=== PATIENT | female | born 1950 | race Two or more races ===

== ENCOUNTER 2017-03-18 12:00 | Inpatient (IN) | payer OTHER ==
[~2017-03-18] VITALS: Ht 162.6 cm; Wt 88.0 kg
[2017-04-07] MEDS ORDERED: METFORMIN HCL1000 M1 ORAL (10:12)
[2017-04-07] MEDS ORDERED: PRADAXA150 MG ORAL (10:12)
[2017-04-07] MEDS ORDERED: LEVOTHYROXINE75 MCG ORAL (10:12)
[2017-04-07] MEDS ORDERED: DILTIAZEM ER180 MG PO (10:12)
[2017-04-07] MEDS ORDERED: AMIODARONE HCL100 MG ORAL (10:12)
[2017-04-08] VITALS (13 sets, daily range): BP systolic 132–156; BP diastolic 74–89
[2017-04-08] MEDS ORDERED: LR 1000ml 1,000 ML IVLG SCH (06:25)
[2017-04-08] MEDS ORDERED: Meperidine 25mg/0.5ml Inj IV PRN (06:30)
[2017-04-08] MEDS ORDERED: DiphenhydrAMINE 50mg/ml Inj IVP PRN (06:30)
[2017-04-08] MEDS ORDERED: Norco 7.5mg/325mg tab ORAL PRN ×3 (06:30→07:45)
[2017-04-08] MEDS ORDERED: fentaNYL 100 mcg/2 mL IV PRN (06:30)
[2017-04-08] MEDS ORDERED: Metoclopramide 10mg/2ml Inj IVP PRN ×2 (06:30→07:45)
[2017-04-08] MEDS ORDERED: Norco 5mg/325mg tab ORAL PRN ×2 (06:30→07:45)
[2017-04-08] MEDS ORDERED: Oxycodone/Acetaminophen 5-325 ORAL PRN (06:30)
[2017-04-08] MEDS ORDERED: LORazepam Inj 2mg/ml 1ml IV PRN (06:30)
[2017-04-08] MEDS ORDERED: Ketorolac 30mg Inj IV PRN (06:30)
[2017-04-08] MEDS ORDERED: Ketorolac 60mg Inj IV PRN (06:30)
[2017-04-08] MEDS ORDERED: Midazolam 2mg/2ml Inj IVP PRN (06:30)
[2017-04-08] MEDS ORDERED: Atropine Inj 1mg/10ml Syr IV PRN (06:30)
[2017-04-08] MEDS ORDERED: Hydromorphone 0.5mg/0.5ml inj IVP PRN (06:30)
--- NOTE | 2017-04-08 06:52 | Anethesia Preoperative Eval ---
Anesthesia Pre-op PMH/ROS General Date of Evaluation: April 08, 2017 Time of Evaluation: 07:16 Anesthesiologist: Hortencia ASA Score: ASA 3 Mallampati Score Class I : Soft palate, uvula, fauces, pillars visible Class II: Soft palate, uvula, fauces visible Class III: Soft palate, base of uvula visible Class IV: Only hard plate visible Mallampati Classification: Class II Surgeon: Kristin Diagnosis: Neck Pain Surgical Procedure: ACDF C5-6 Anesthesia History: none Family History: no anesthesia problems Allergies: Coded Allergies: ASPIRIN (Verified Allergy, Unknown, 04/07/17) PT DOES NOT KNOW REACTION, 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 Medications: see eMAR Past Medical History Cardiovascular: Reports: HTN, arrhythmia - Pacemaker Neurologic/Psychiatric: Reports: depression/anxiety Endocrine: Reports: DM - FBS 140 HEENT: Reports: cataract (R) PSxH Narrative: LEX Anesthesia Pre-op Phys. Exam Physician Exam Last Vital Signs Date Time Temp Pulse Resp B/P Pulse Ox O2 Delivery O2 Flow Rate FiO2 04/08/17 05:54 97.1 68 18 156/74 99 Room Air Constitutional: NAD Neurologic: CN 2-12 intact Cardiovascular: RRR Respiratory: CTA Gastrointestinal: S/NT/ND Airway Exam Mallampati Score: Class II MO: full ROM: limited Teeth: intact Anesthesia Pre-op A/P Risk Assessment & Plan Assessment: ASA 3 Plan: GA, BIS, Glidescope Status Change Before Surgery: No Pre-Antibiotics Dru Grams Ancef IV Given Within 1 Hr of Incision: Yes Time Given: 07:31 Weston Burnett MD April 08, 2017 06:52
--- NOTE | 2017-04-08 06:54 | 48 Hour Post Anesthesia Eval ---
Post Anesthesia Evaluation Procedure: ACDF C5-6 Date of Evaluation: April 08, 2017 Time of Evaluation: 11:43 Blood Pressure Systolic: 150 0: 87 Pulse Rate: 60 Respiratory Rate: 14 Temperature (Fahrenheit): 97.6 O2 Sat by Pulse Oximetry: 100 Airway: patent Nausea: No Vomiting: No Pain Intensity: 3 Hydration Status: adequate Cardiopulmonary Status: Stable Mental Status/LOC: patient returned to baseline Follow-up Care/Observations: 0 Post-Anesthesia Complications: 0 Follow-up care needed: N/A Weston Burnett MD April 08, 2017 06:54
--- NOTE | 2017-04-08 06:54 | Immediate Post-Op Evaluation ---
Immediate Post-Op Evalulation Immediate Post-Op Evalulation Procedure: ACDF C5-6 Date of Evaluation: April 08, 2017 Time of Evaluation: 09:15 IV Fluids: 700 LR Blood Products: 0 Estimated Blood Loss: 20 Urinary Output: 400 Blood Pressure Systolic: 149 Blood Pressure Diastolic: 85 Pulse Rate: 60 Respiratory Rate: 16 O2 Sat by Pulse Oximetry: 100 Temperature (Fahrenheit): 97 Pain Score (1-10): 3 Nausea: No Vomiting: No Complications 0 Patient Status: awake, reacts, patent, extubated, none Hydration Status: adequate Dru Grams Ancef IV Given Within 1 Hr of Incision: Yes Time Given: 07:31 Weston Burnett MD April 08, 2017 06:54
[2017-04-08] MEDS ORDERED: Thrombin 5000 units TOPIC ONE (06:58)
[2017-04-08] MEDS ORDERED: Vancomycin 1gm inj IVPB ONE (06:58)
[2017-04-08] MEDS ORDERED: Bacitracin 50000 Units Vial ONE (06:59)
[2017-04-08] MEDS ORDERED: Bupivacaine w/Epi 0.5% 30ml Vial INJ ONE (06:59)
[2017-04-08] MEDS ORDERED: LR 1000ml ONE (07:00)
[2017-04-08] MEDS ORDERED: Nimbex 2mg/ml Inj 10ML IVP ONE (07:00)
[2017-04-08] MEDS ORDERED: Glycopyrrolate 0.2mg/ml 1ml Vial ONE (07:00)
[2017-04-08] MEDS ORDERED: Neostigmine 1mg/ml 10ml Inj ONE (07:00)
[2017-04-08] MEDS ORDERED: ceFAZolin sod 2 GM in D5W 110 ML IVPB ONE (07:00)
[2017-04-08] MEDS ORDERED: Lidocaine 1% MPF 10mg/ml 5ml ONE (07:00)
[2017-04-08] MEDS ORDERED: Lidocaine 1% Plain 30 ml INJ ONE (07:00)
[2017-04-08] MEDS ORDERED: Midazolam 2mg/2ml Inj ONE (07:00)
[2017-04-08] MEDS ORDERED: fentaNYL 250mcg/5ml ONE (07:00)
[2017-04-08] MEDS ORDERED: NS Irrig 1000ml ONE (07:00)
[2017-04-08] MEDS ORDERED: Sterile Water Irrig 1000ml IRRIG ONE (07:00)
[2017-04-08] MEDS ORDERED: Propofol 10mg/ml 100ml btl IV ONE (07:30)
--- NOTE | 2017-04-08 07:36 | Pre-Procedure Note/Attestation ---
Pre-Procedure Note/Attestation Complete Prior to Procedure Planned Procedure: not applicable Procedure Narrative: Anterior cervical discectomy and fusion of C56 with allograft Indications for Procedure Pre-Operative Diagnosis: Cervical 56 hnp Attestation I attest that I discussed the nature of the procedure; its benefits; risks and complications; and alternatives (and the risks and benefits of such alternatives ), prior to the procedure, with the patient (or the patient's legal employer relations representative). I attest that, if there was a reasonable possibility of needing a blood transfusion, the patient (or the patient's legal employer relations representative) was given the [facility] standardized written summary, pursuant to the Ziyad Rosaura Blood Safety Act ([place] Health and Safety Code # 1645, as amended). I attest that I re-evaluated the patient just prior to the surgery and that there has been no change in the patient's H&P, except as documented below: MAYE DAVE April 08, 2017 07:36
--- NOTE | 2017-04-08 07:37 | Brief Operative Note ---
Immediate Post Operative Note Operative Note Chief Complaint: neck pain and right more than left arm pain Pre-op Diagnosis: Cervical 56 hnp Procedure: Anterior cervical discectomy and fusion of C56 with allograft Post-op Diagnosis: same as pre-op Findings: consistent w/pre-op dx studies Surgeon: Kristin Computing Services Director: Dena Anesthesiologist: Hortencia Anesthesia: general Specimen: none Complications: none Condition: stable Estimated Blood Loss: minimal Implant(s) used?: Yes - Nuvasive interlock c sz 6 MAYE DAVE April 08, 2017 07:37
[2017-04-08] MEDS ORDERED: Naloxone 0.4mg/ml Inj IVP PRN (07:45)
[2017-04-08] MEDS ORDERED: HYDROmorphone 1mg/ml Carpuject IVP PRN (07:45)
[2017-04-08] MEDS ORDERED: HYDROmorphone 1mg/ml Carpuject SUBQ PRN (07:45)
[2017-04-08] MEDS ORDERED: Acetaminophen (Non formulary) 100 ML IV ONE (08:00)
[2017-04-08] MEDS: Dexamethasone 4mg/ml vial IVP SCH ×3 (11:29→22:53)
[2017-04-08] MEDS: Amiodarone 200mg tab ORAL SCH (12:59)
[2017-04-08] MEDS: NS w/KCl 20mEq 1,000 ML IV SCH ×2 (12:59→22:53)
[2017-04-08] MEDS: Diltiazem CD 180mg cap ORAL SCH (12:59)
[2017-04-08] MEDS: ceFAZolin sod 1 GM in D5W 55 ML IV SCH ×2 (14:26→22:53)
[2017-04-08] MEDS: metFORMIN 500mg tab ORAL SCH (16:45)
[2017-04-08] MEDS: Docusate 100mg cap ORAL SCH (17:24)
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
[2017-04-09] VITALS: BP 138/80
[2017-04-09 04:00] VITALS: BP 124/71
[2017-04-09] MEDS: Dexamethasone 4mg/ml vial IVP SCH (06:43)
[2017-04-09] MEDS: ceFAZolin sod 1 GM in D5W 55 ML IV SCH (06:43)
[2017-04-09 08:00] VITALS: BP 140/77
[2017-04-09] MEDS: Diltiazem CD 180mg cap ORAL SCH (09:03)
[2017-04-09] MEDS: Amiodarone 200mg tab ORAL SCH (09:04)
[2017-04-09] MEDS: Docusate 100mg cap ORAL SCH (09:04)
[2017-04-09] MEDS: metFORMIN 500mg tab ORAL SCH (09:04)
[2017-04-09 12:00] VITALS: BP 131/77
--- NOTE | 2017-04-09 22:16 | Discharge Summary ---
DATE OF ADMISSION: 04/08/2017 DATE OF DISCHARGE: 04/09/2017 DATE OF ADMISSION: 04/08/2017 DATE OF DISCHARGE: 04/09/2017 PROCEDURE PERFORMED DURING ADMISSION: Anterior cervical diskectomy and fusion. REASON FOR ADMISSION: Herniated nucleus pulposus at cervical spine. HOSPITAL COURSE/TREATMENT RENDERED: DISCHARGE PHYSICAL EXAMINATION: 1. Patient was ambulating with and without the assistance of physical therapy 2. Prior to discharge home incision was clean and dry with minimal swelling 3. Follows commands 4. Alert and oriented 5. Arreguin discontinued, voiding 6. Incentive spirometer at bedside 7. IVF hep locked MOTOR: Demonstrates expected postoperative bulk and tone. Moves biceps, triceps, and deltoid musculature on command. Moves hip flexors, quadriceps, tibialis anterior, EHL, gastrocsoleus musculature on command as well. TREATMENT RENDERED: 1. Daily nursing care 2. Physical Therapy 3. Occupational Therapy 4. Intravenous medications 5. Oral medications 6. Daily postoperative examinations by Spine surgery team CONDITION OF PATIENT ON DISCHARGE: The condition on discharge is stable for discharge to home DISCHARGE INSTRUCTIONS: Our specific instructions relating to physical activity, medications diet and follow-up care are detailed in our standard operative folder and were given to this patient prior to surgery. We will however summarize these briefly as stated below. Regarding physical activity we would like the patient to limit their flexion, extension and rotation. We also require a limitation on their bending lifting and twisting. All medication has been called in prior to surgery to their pharmacy of choice. They can resume their regular diet once tolerated. We would like them to shower and limit soaking the wound in a tub/Jacuzzi/the ocean for a period of one month or until the incision is completely healed. We will have them follow up in our office in three weeks time for their regularly scheduled appointment. They understand to call our office tomorrow to schedule the time for their three week followup appointment. The patient will notify us should they experience any increase in the severity of pain, redness/swelling/ or drainage from their incision. Kush Foster M.D. DR: Tiffany JOB#: [id number] CC:
== END 2017-04-09 15:00 | disposition home or self-care (01) | DRG 473 ==
LOC: SDSOVERFLO 04-08 05:14 → 3E 04-08 10:16
DX: M50.122 Cervical disc disorder at C5-C6 level with radiculopathy (principal); M48.02 Spinal stenosis, cervical region; I10 Essential (primary) hypertension; E11.9 Type 2 diabetes mellitus without complications; Z95.0 Presence of cardiac pacemaker; F41.9 Anxiety disorder, unspecified; E66.9 Obesity, unspecified; Z68.33 Body mass index [BMI] 33.0-33.9, adult
CPT/HCPCS: 36415; 72040; 76000; 82962; 86850; 86900; 86901; 87081; 94003; 94150; J2180; J2250; J2405; J2710

== ENCOUNTER 2019-03-02 11:30 | Inpatient (IN) | payer OTHER ==
[~2019-03-02] VITALS: Ht 165.1 cm; Wt 88.9 kg
[~2019-03-02 11:30] MED LIST: AMIODARONE HCL100 MG ORAL; DILTIAZEM ER180 MG PO; LEVOTHYROXINE75 MCG ORAL; METFORMIN HCL1000 M1 ORAL; PRADAXA150 MG ORAL
--- NOTE | 2019-03-08 09:20 | NUR ---
ADMITTED VIA TABITHA REBOLLEDO #[id number].
[2019-03-09] VITALS (13 sets, daily range): BP systolic 120–170; BP diastolic 71–88
[2019-03-09] MEDS ORDERED: ceFAZolin sod 2 GM in D5W 55 ML IVP ONE (06:00)
--- NOTE | 2019-03-09 07:32 | Pre-Procedure Note/Attestation ---
Pre-Procedure Note/Attestation Complete Prior to Procedure Planned Procedure: not applicable Procedure Narrative: Lumbar 45, 5S1 microdiscectomy and hemilaminotomy foraminotomy with baxano Indications for Procedure Pre-Operative Diagnosis: L45 L5S1 herniation and back pain Attestation I attest that I discussed the nature of the procedure; its benefits; risks and complications; and alternatives (and the risks and benefits of such alternatives ), prior to the procedure, with the patient (or the patient's legal cordage sales representative). I attest that, if there was a reasonable possibility of needing a blood transfusion, the patient (or the patient's legal cordage sales representative) was given the [place] [facility] standardized written summary, pursuant to the Ziyad Barada Blood Safety Act ([place] Health and Safety Code # 1645, as amended). I attest that I re-evaluated the patient just prior to the surgery and that there has been no change in the patient's H&P, except as documented below: Kush Foster MD Mar 09, 2019 07:32
--- NOTE | 2019-03-09 07:33 | Brief Operative Note ---
Immediate Post Operative Note Operative Note Chief Complaint: back pain and radiculopathy Pre-op Diagnosis: L45 L5S1 herniation and back pain Procedure: Lumbar 45, 5S1 microdiscectomy and hemilaminotomy foraminotomy with baxano Post-op Diagnosis: same as pre-op Findings: consistent w/pre-op dx studies Surgeon: Kristin [employer] Technician: Kalpesh Anesthesiologist: Hortencia Anesthesia: general Specimen: none Complications: none Condition: stable Fluids: iv Estimated Blood Loss: minimal Drains: none Implant(s) used?: No Kush Foster MD Mar 09, 2019 07:33
[2019-03-09] MEDS ORDERED: Naloxone 0.4mg/ml Inj IVP PRN (07:45)
[2019-03-09] MEDS ORDERED: Milk of Magnesia 30ml Ud ORAL PRN (07:45)
[2019-03-09] MEDS ORDERED: HYDROmorphone 1mg/ml Carpuject IVP PRN (07:45)
[2019-03-09] MEDS ORDERED: Morphine Sulfate 4mg/ml Inj (IV USE ONLY) IV PRN ×2 (07:45)
[2019-03-09] MEDS ORDERED: HYDROcodone/Acetamin 7.5/325 tab ORAL PRN ×3 (07:45→09:45)
[2019-03-09] MEDS ORDERED: Chloraseptic Spray 20mL Bottle ORAL PRN (07:45)
[2019-03-09] MEDS ORDERED: Morphine Sulfate 2mg/ml Inj(IV/IM USE ONLY) IV PRN (07:45)
[2019-03-09] MEDS ORDERED: HYDROcodone/Acetamin 5/325 tab ORAL PRN ×2 (07:45→09:45)
[2019-03-09] MEDS ORDERED: Metoclopramide 10mg/2ml Inj IVP PRN ×2 (07:45→11:15)
[2019-03-09] MEDS ORDERED: SYNTHROID25 MCG ORAL (08:20)
[2019-03-09] MEDS ORDERED: PRADAXA110 MG PO (08:20)
[2019-03-09] MEDS ORDERED: ATENOLOL100 MG ORAL (08:20)
[2019-03-09] MEDS ORDERED: AMITRIPTYLINE25 MG ORAL (08:20)
[2019-03-09] MEDS ORDERED: LISINOPRIL30 MG ORAL (08:20)
[2019-03-09] MEDS ORDERED: HYDRALAZINE HCL50 MG ORAL (08:26)
[2019-03-09] MEDS ORDERED: Docusate 100mg cap ORAL SCH (09:00)
[2019-03-09] MEDS ORDERED: LR 1000ml 1,000 ML IVLG SCH (09:31)
--- NOTE | 2019-03-09 09:40 | Anethesia Preoperative Eval ---
Anesthesia Pre-op PMH/ROS General Date of Evaluation: Mar 09, 2019 Time of Evaluation: 10:29 Anesthesiologist: Hortencia ASA Score: ASA 3 Mallampati Score Class I : Soft palate, uvula, fauces, pillars visible Class II: Soft palate, uvula, fauces visible Class III: Soft palate, base of uvula visible Class IV: Only hard plate visible Mallampati Classification: Class II Surgeon: Kristin Diagnosis: Back Pain Surgical Procedure: R Hemilaminectomy L4-5, L5-S1, Baxano Anesthesia History: none Family History: no anesthesia problems Allergies: Coded Allergies: ASPIRIN (Verified Allergy, Unknown, 03/09/19) PT DOES NOT KNOW REACTION, SUPERVISOR 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 SHE WAS TOLD BY PRIMARY DR NOT TO TAKE ASPIRIN BECAUSE PT TAKING OTHER BLOOD THINNERS. Medications: see eMAR Patient NPO?: Yes NPO Date: Mar 08, 2019 NPO Time: 1900 Past Medical History Cardiovascular: Reports: HTN, arrhythmia - Pacemaker, other - HL Neurologic/Psychiatric: Reports: depression/anxiety Endocrine: Reports: DM, hypothyroidism HEENT: Reports: cataract (R) Other: obesity - BMI 34 PSxH Narrative: LEX, Cervical SX, Cataract IOL OD Anesthesia Pre-op Phys. Exam Physician Exam Last Vital Signs Date Time Temp Pulse Resp B/P (MAP) Pulse Ox O2 Delivery O2 Flow Rate FiO2 03/09/19 08:11 97.0 60 20 148/78 (101) 100 03/09/19 07:42 Room Air Constitutional: NAD Neurologic: CN 2-12 intact Cardiovascular: RRR Respiratory: CTA Gastrointestinal: S/NT/ND Airway Exam Mallampati Score: Class II MO: full ROM: limited Teeth: missing, intact Anesthesia Pre-op A/P Risk Assessment & Plan Assessment: ASA 3 Plan: GA, SED, GlideScope Go Status Change Before Surgery: No Pre-Antibiotics Dru Grams Ancef IV Given Within 1 Hr of Incision: Yes Time Given: 10:56 Weston Burnett MD Mar 09, 2019 09:40
[2019-03-09] MEDS ORDERED: Lidocaine 1% MPF 10mg/ml 5ml ONE (09:43)
[2019-03-09] MEDS ORDERED: Sodium Chloride 10ml vial INJ ONE (09:43)
[2019-03-09] MEDS ORDERED: DiphenhydrAMINE 50mg/ml Inj IVP PRN (09:45)
[2019-03-09] MEDS ORDERED: Meperidine 50mg/ml Inj(FOR RIGORS ONLY) IVP PRN (09:45)
[2019-03-09] MEDS ORDERED: Midazolam 2mg/2ml Inj IVP PRN (09:45)
[2019-03-09] MEDS ORDERED: fentaNYL 100 mcg/2 mL IV PRN (09:45)
[2019-03-09] MEDS ORDERED: Labetalol 5mg/ml 20ml vial IV PRN (09:45)
[2019-03-09] MEDS ORDERED: oxyCODONE HCL/Acetaminophen 5/325mg ORAL PRN (09:45)
[2019-03-09] MEDS ORDERED: Acetaminophen (Non formulary) 100 ML IV ONE (09:45)
[2019-03-09] MEDS ORDERED: LORazepam Inj 2mg/ml 1ml IV PRN (09:45)
[2019-03-09] MEDS ORDERED: Hydromorphone 0.5mg/0.5ml inj IVP PRN (09:45)
[2019-03-09] MEDS ORDERED: Atropine Sulfate 0.4mg/ml inj IVP PRN (09:45)
[2019-03-09] MEDS ORDERED: fentaNYL 100 mcg/2 mL IV ONE (09:59)
[2019-03-09] MEDS ORDERED: NS Irrig 1000ml ONE (10:30)
[2019-03-09] MEDS ORDERED: Propofol 1,000mg/ 100ml btl IV ONE (10:30)
[2019-03-09] MEDS ORDERED: Sterile Water Irrig 1000ml IRRIG ONE (10:30)
[2019-03-09] MEDS ORDERED: LR 1000ml ONE (10:30)
[2019-03-09] MEDS ORDERED: Thrombin 5000 units TOPIC ONE (10:35)
[2019-03-09] MEDS ORDERED: Lidocaine 1% Plain 30 ml INJ ONE (10:35)
[2019-03-09] MEDS ORDERED: Bupivacaine w/Epi 0.5% 30ml Vial INJ ONE (10:35)
[2019-03-09] MEDS ORDERED: Gelfoam Size TOPIC ONE (10:35)
[2019-03-09] MEDS ORDERED: Bacitracin 50000 Units Vial ONE (10:35)
[2019-03-09] MEDS ORDERED: Propofol 200mg/20ml IV ONE (10:37)
[2019-03-09] MEDS ORDERED: Dexamethasone 4mg/ml vial ONE (11:26)
--- NOTE | 2019-03-09 11:26 | Immediate Post-Op Evaluation ---
Immediate Post-Op Evalulation Immediate Post-Op Evalulation Procedure: R Hemilaminectomy L4-5, L5-S1, Baxano Date of Evaluation: Mar 09, 2019 Time of Evaluation: 13:25 IV Fluids: 800 LR Blood Products: 0 Estimated Blood Loss: 20 Urinary Output: 200 Blood Pressure Systolic: 170 Blood Pressure Diastolic: 88 Pulse Rate: 59 Respiratory Rate: 16 O2 Sat by Pulse Oximetry: 100 Temperature (Fahrenheit): 97.6 Pain Score (1-10): 2 Nausea: No Vomiting: No Complications 0 Patient Status: awake, reacts, patent, extubated, none Hydration Status: adequate Dru Grams Ancef IV Given Within 1 Hr of Incision: Yes Time Given: 10:56 Weston Burnett MD Mar 09, 2019 11:26
[2019-03-09] MEDS ORDERED: Dexamethasone 4mg/ml vial IVP SCH (12:00)
[2019-03-09] MEDS ORDERED: Neostigmine 1mg/ml 10ml Inj ONE (12:09)
[2019-03-09] MEDS ORDERED: Glycopyrrolate 0.2mg/ml 1ml Vial ONE (12:09)
--- NOTE | 2019-03-09 13:54 | Diagnostic Imaging Report ---
Indication: Back pain Technique: 1intraoperative fluoroscopic image Total fluoroscopy time 11.5 seconds Total fluoroscopy dose 7.42 mGy Physician: Kush Foster MD Findings: Intraoperative fluoroscopic image submitted for archival the PACS. Single lateral image demonstrates anterolisthesis of L5 on S1. Surgical material projects posterior to the spine the level of L4-5 and L5-S1. Impression: Intraoperative fluoroscopic imaging from spinal surgery. Please see operative report.
--- NOTE | 2019-03-09 14:30 | NUR ---
NURSE NOTES: Received report from Mya MENDIOLA. Patient arrived to unit via bed accompanied by RN. Patient is awake alert and oriented x4, no acute distress noted, primarily thai speaking. Patient is reporting pain rated 5/10 in lower back but not requesting pain medication at this time. Posterior dressing clean, dry, intact and ice pack placed. SCD's in place. Patient is on 3L NC. Noted left chest pacemaker. Neuro check assessed intact, patient reporting no numbness or tingling in extremities. Patient placed on continuous pulseox. Side rails upx3, bed low and locked, call light in reach. Will continue to monitor.
[2019-03-09] MEDS: NS w/KCl 20mEq 1,000 ML IV SCH (15:15)
--- NOTE | 2019-03-09 16:18 | NUR ---
CASE MANAGEMENT:REVIEW 68 YR OLD FEMALE HERE FOR ELECTIVE SURGERY SI:BACK PAIN AND RADICULOPATHY 97.0 60 10 148/78 100% ON RA IS: TO SURGERY FOR: LUMBAR MICRODISCECTOMY IV ANCEF Q8HRS IVF@100/HR IV DECADRON Q6HRS : TO MED/SURG 3 EAST POST SURGERY
--- NOTE | 2019-03-09 16:54 | NUR ---
NURSE NOTES: Called Dr. Foster's office to confirm internal medicine doctor, office stated that internal medicine doctor is Dr. Sepulveda. Called Dr. Sepulveda and left voicemail with MD reporting that patient is on the unit and to call back unit for home medication reconciliation. Awaiting callback from MD with further orders. Will continue to monitor.
--- NOTE | 2019-03-09 18:00 | Operative Note - Dictated ---
DATE OF OPERATION: 03/09/2019 SURGEON: Kush Foster MD, Orthopaedic Spine Surgeon. COINING PRESS OPERATOR SURGEON: Navneet Posey M.D. ANESTHESIA: General endotracheal anesthesia. PREOPERATIVE DIAGNOSES: 1. Intractable back pain. 2. Intractable leg pain. 3. Worsening radiculopathy. 4. Weakness. 5. Herniated nucleus pulposus, L4-L5 and L5-S1 herniation. 6. Neural foraminal stenosis, L4-L5 and L5-S1. POSTOPERATIVE DIAGNOSES: 1. Intractable back pain. 2. Intractable leg pain. 3. Worsening radiculopathy. 4. Weakness. 5. Herniated nucleus pulposus, L4-L5 and L5-S1 herniation. 6. Neural foraminal stenosis, L4-L5 and L5-S1. PROCEDURES PERFORMED: 1. Right-sided L4-L5 and L5-S1 microdiscectomy. 2. L4-L5 and L5-S1 hemilaminotomy, foraminotomy and medial facetectomy. 3. L4-L5 and L5-S1 neural foraminotomy through a transpedicular intraforaminal approach. 4. Use of intraoperative microscope. 5. Supervision and interpretation of intraoperative fluoroscopy. 6. Supervision and interpretation of somatosensory-evoked potential and free running EMG monitoring. EBL: Less than 100 mL. COMPLICATIONS: None. INDICATIONS FOR THE PROCEDURE: Vicki presents for intractable back pain and radiculopathy. The patient tried and failed a prolonged course of conservative management, including but not limited to chiropractic therapy, physical therapy, nonsteroidal anti-inflammatory drugs, medication, ice packs as well as epidural injection. Despite these therapies, the patient still developed recalcitrant pain and elected for definitive management in the form of right-sided L4-L5 and L5-S1 microdiscectomy, L4-L5 and L5-S1 hemilaminotomy, foraminotomy and medial facetectomy, L4-L5 and L5-S1 neural foraminotomy through a transpedicular intraforaminal approach We had a long discussion with him regarding definitive surgical treatment options. The patient's MRI demonstrated herniated nucleus pulposus, L4-L5 and L5-S1 herniation, neural foraminal stenosis, L4-L5 and L5-S1 and as a result, I felt he would benefit from the discectomy as well as neural foraminotomy at this level. We had a long discussion with the patient regarding the risks, alternatives, and benefits of surgery. Our description of the risks included a discussion in person as well as a signed consent which detailed all pertinent risks and the procedure itself. Briefly, our discussion included but was not limited to infection, bleeding, pseudarthrosis, spinal cord injury, neurovascular injury, dural tear, CSF leak, neuropathy, paralysis, permanent weakness/drop foot, paresthesias blindness, palsy and weakness. The patient understood there may be a need for revision surgery or additional procedures. Approach related complications including dysphonia, dysphagia, blindness, permanent vocal cord and neural injury, hematoma, swallowing and breathing difficulty. Medical complications including liver, kidney, shock, and cardiopulmonary failure. Anesthesia complications including , swelling. Damage to the musculature, larynx (voice injury or loss),esophagus (throat), trachea, blood vessels and muscles (muscular sprain) and lungs (pneumothorax) during this surgical procedure. Injury to deeper structures may be temporary or permanent. The patient understood these and elected to proceed. A written and verbal consent was given. We discussed the pros and cons of all the alternatives. We discussed the uncertainties associated with the decision. Afterwards I assessed the patients understanding and explored their preferences. All questions were answered and no guarantees were given. Medical clearance was obtained prior to surgery. OPERATIVE FINDINGS: A broad-based foraminal disc herniation at L4-L5 and L5-S1 , was encountered which encroached on the thecal sac and neural foraminal elements therein. This disc at L45 was visualized through a 45 degree tear in the PLL and the fragment that had migrated through the tear was acute in nature and not calcified. It was mobile and free floating and resected easily. At L5 S1 near the outer 1/3 of the PLL there was a tear in the Pll noted which was approximately 30 degrees in the PLL and through this tear there was a mobile soft piece of nuclear tissue/pulposus. This was not calcified and was clearly impinging on the exiting neural structures at L5S1. There was also neural foraminal stenosis at L4-L5 and L5-S1. DESCRIPTION OF PROCEDURE: Under the benefit of general endotracheal anesthesia and with the assistance of the entire operative team, the patient was moved from the rharriman onto the operative table in the prone position on a Jc frame. The head was secured and positioned appropriately. Bilateral arms were secured with Gel pads and foam and all bony prominences were padded. The bilateral lower extremity SCD and BUD hose were placed for DVT prophylaxis. A surgical timeout was called which corroborated our planned procedure. Preoperative Antibiotics were administered within 30 minutes of the incision for prophylaxis. Decadron was given for preoperative steroids. Using lateral radiography, the operative levels were delineated. An incision was marked based on our interpretation of lateral radiography and afterwards the body was prepped and draped in the usual sterile manner. The family was notified that we were ready to commence surgery and were called in the waiting room hourly for updates. An incision was based on our lateral fluoroscopic image to center the incision at the L5-S1 interspace. The wound was prepped and draped in the usual sterile fashion. Using a scalpel a midline incision was taken down through the skin and subcutaneous tissues until the overlying hemilamina of L4-L5 and L5-S1 were visualized. Next, using meticulous hemostasis, hemilamotomies were dissected and retractors were placed. Using a [email or web address] dental we confirmed placement at the L4-L5 and L5-S1 interspace. We next turned our attention to our decompression. A standard hemilaminotomy foraminotomy medial facetectomy was performed at each level in standard fashion using a Midas-Ren type AM8 drill bit, straight and angled curettage, and Kerrison 4 rongeurs until the lateral thecal sac margin and traversing nerve root was visualized. All remainders of the ligamentum flavum and lateral bony margins were resected in total with angled curettage and Kerrison 4 rongeurs until the lateral thecal sac margin and traversing nerve root was visualized and decompressed. We next turned our attention toward our L4-L5 microdiscectomy on the right side. A Destrehan 4 was used to gently mobilize the thecal sac medially and this was held retracted with a bayonetted nerve root retractor. It was at this point that we noted a large broad-based disc protrusion with encroachment dorsally on the thecal sac neural foraminal contents. This disc at L45 was visualized through a 45 degree tear in the PLL and the fragment that had migrated through the tear was acute in nature and not calcified. It was mobile and free floating and resected easily. A bayonet and nerve root retractor was then placed carefully to retract the thecal sac and a discectomy was performed using a combination of a long handled 15 blade scalpel, downgoing and straight pituitaries and downgoing curettage. Afterward the disc space was irrigated twice with 20 mL of antibiotic-impregnated saline. All loose and free-floating disc fragments were carefully resected with a narrow pituitary. We next turned our attention toward our L5-S1 microdiscectomy on the right side. A Destrehan 4 was used to gently mobilize the thecal sac medially and this was held retracted with a bayonetted nerve root retractor. It was at this point that we noted a large broad-based disc protrusion with encroachment dorsally on the thecal sac neural foraminal contents. At L5 S1 near the outer 1/3 of the PLL there was a tear in the Pll noted which was approximately 30 degrees in the PLL and through this tear there was a mobile soft piece of nuclear tissue/pulposus. This was not calcified and was clearly impinging on the exiting neural structures at L5S1. A bayonet and nerve root retractor was then placed carefully to retract the thecal sac and a discectomy was performed using a combination of a long handled 15 blade scalpel, downgoing and straight pituitaries and downgoing curettage. Afterward the disc space was irrigated twice with 20 mL of antibiotic-impregnated saline. All loose and free-floating disc fragments were carefully resected with a narrow pituitary. Having been satisfied with our decompression after our discectomy of all neural elements we next turned our attention to our neural foraminoplasty/foraminotomy. This was performed through kerrisons and pituitaries which ultimately allowed for re-creation of the neural foraminal arch at L4-L5 and L5-S1. Afterwards hemostasis was obtained with 60 mL of antibiotic-impregnated saline followed by FloSeal and Gelfoam. After sponge and needle count were found to be correct, next we turned our attention to closure. Closure consisted of 1-0 Vicryl in standard interrupted fashion. Zosyn was placed deep to the fascia and superficial to the fascia for Antibiotic prophylaxis. Skin closure was performed with 2-0 Vicryl in interrupted fashion followed by a running Monocryl for the skin. Final dressings consisted of Dermabond for the superficial skin, Telfa and Tegaderm. The patient tolerated the procedure well. The patient was extubated after the conclusion of surgery without incident. We discussed the findings of the surgery with the family upon completion of the case. At this point the patient will be transferred to the spine floor for further observation. Kush Foster M.D. DR: ROMMEL JOB#: [id number] CC: ANTOINE
[2019-03-09] MEDS: metFORMIN 500mg tab ORAL SCH (18:35)
[2019-03-09] MEDS: Docusate 100mg cap ORAL SCH (18:36)
[2019-03-09] MEDS: Dexamethasone 4mg/ml vial IVP SCH (18:36)
[2019-03-09] MEDS: HydrALAZINE 50mg tab ORAL SCH (18:36)
[2019-03-09] MEDS: ceFAZolin sod 1 GM in D5W 55 ML IV SCH (18:36)
--- NOTE | 2019-03-09 19:44 | NUR ---
HAND-OFF: Report given to Dax MENDIOLA. Patient is in stable condition. Endorsed to follow up with MD due to patient not voiding yet following discontinuation of stone catheter.
[2019-03-10] VITALS: BP 129/75
[2019-03-10] MEDS: Dexamethasone 4mg/ml vial IVP SCH ×2 (00:28→05:38)
[2019-03-10] MEDS: NS w/KCl 20mEq 1,000 ML IV SCH (00:28)
[2019-03-10] MEDS: ceFAZolin sod 1 GM in D5W 55 ML IV SCH (02:04)
[2019-03-10 04:00] VITALS: BP 152/78
[2019-03-10] MEDS ORDERED: Levothyroxine 25mcg tab ORAL SCH (06:30)
--- NOTE | 2019-03-10 07:50 | NUR ---
NURSE NOTES: Patient is in bed awake and able to verbalize needs. Patient is stable with no s/s acute distress. Denies pain or SOB at this time. VSS. Patient encouraged to use call light for assistance, verbalized understanding. All needs met at this time. Patient is in good spirits with call light within reach. Will continue to monitor.
[2019-03-10 08:00] VITALS: BP 125/77
[2019-03-10] MEDS: Docusate 100mg cap ORAL SCH (08:53)
[2019-03-10] MEDS: HydrALAZINE 50mg tab ORAL SCH (08:54)
[2019-03-10] MEDS: metFORMIN 500mg tab ORAL SCH (08:54)
[2019-03-10] MEDS ORDERED: Lisinopril 10mg tab ORAL SCH (09:00)
[2019-03-10] MEDS ORDERED: Amiodarone 200mg tab ORAL SCH (09:00)
--- NOTE | 2019-03-10 10:15 | Discharge Summary ---
DATE OF ADMISSION: 03/09/2019 DATE OF DISCHARGE: 03/10/2019 PROCEDURE PERFORMED DURING ADMISSION: L4-L5 and L5-S1 microdiscectomy. REASON FOR ADMISSION: Herniation of L4-L5 and L5-S1. HOSPITAL COURSE/TREATMENT RENDERED: DISCHARGE PHYSICAL EXAMINATION: 1. The patient was ambulating with and without the assistance of physical therapy. 2. Prior to discharge home, incision was clean and dry with minimal swelling. 3. Follows commands. 4. Alert and oriented. 5. Arreguin discontinued, voiding. 6. Incentive spirometer at bedside. 7. IVF hep locked. MOTOR: Demonstrates expected postoperative bulk and tone. Moves biceps, triceps, and deltoid musculature on command. Moves hip flexors, quadriceps, tibialis anterior, EHL, gastrocsoleus musculature on command as well. TREATMENT RENDERED: 1. Daily nursing care. 2. Physical Therapy. 3. Occupational Therapy. 4. Intravenous medications. 5. Oral medications. 6. Daily postoperative examinations by Spine Surgery team. CONDITION OF PATIENT ON DISCHARGE: The condition on discharge is stable for discharge to home. DISCHARGE INSTRUCTIONS: Our specific instructions relating to physical activity, medications, diet, and follow-up care are detailed in our standard operative folder and were given to this patient prior to surgery. We will however summarize these briefly as stated below. Regarding physical activity, we would like the patient to limit their flexion, extension, and rotation. We also require a limitation on their bending, lifting, and twisting. All medication has been called in prior to surgery to their pharmacy of choice. They can resume their regular diet once tolerated. We would like them to shower and limit soaking the wound in a tub/Jacuzzi/the ocean for a period of one month or until the incision is completely healed. We will have them follow up in our office in three weeks' time for their regularly scheduled appointment. They understand to call our office tomorrow to schedule the time for their three-week followup appointment. The patient will notify us should they experience any increase in the severity of pain, redness/swelling or drainage from their incision. Kush Foster M.D. DR: ALEJANDRA/ALIYAH JOB#: [id number] CC:
--- NOTE | 2019-03-10 11:48 | NUR ---
NURSE NOTES: Patient discharged home as ordered. Stable, denies pain or SOB. Patient was given thorough discharge instructions by RN and Dr. Foster, verbalized understanding. Patient has all belongings and prescription. Medication instructions given to patient, verbalized understanding. Skin is clean, dry, and intact. Surgical site is clean and dry. No IV access. Patient assisted into private vehicle without incident.
--- NOTE | 2019-03-10 13:43 | NUR ---
PT Note PT stefani completed, treatment initiated. Patient was instructed on proper body mechanics and proper log rolling techniques. She's receptive with instructions. Pt needs PT to instruct on safe bed mobility, transfer and gait techniques to improve her safety in mobility. Addendum: 03/10/19 at 1343 by DEENA MAYEN PT Amended: Links added.
[2019-03-10 15:31] VITALS: BP 125/75
--- NOTE | 2019-03-10 15:31 | 48 Hour Post Anesthesia Eval ---
Post Anesthesia Evaluation Procedure: R Hemilaminectomy L4-5, L5-S1, [place] Date of Evaluation: Mar 10, 2019 Time of Evaluation: 15:31 Blood Pressure Systolic: 125 0: 75 Pulse Rate: 70 Respiratory Rate: 14 O2 Sat by Pulse Oximetry: 97 Airway: patent Nausea: No Vomiting: No Hydration Status: adequate Cardiopulmonary Status: stable Mental Status/LOC: patient returned to baseline Follow-up Care/Observations: na Post-Anesthesia Complications: none Follow-up care needed: N/A Tianna Conner CRNA Mar 10, 2019 15:31
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
== END 2019-03-10 11:51 | disposition home or self-care (01) | DRG 520 ==
LOC: SDSOVERFLO 03-09 07:08 → 3E 03-09 14:05
PROC: 0ST20ZZ Resection of Lumbar Vertebral Disc, Open Approach (ICD-10-PCS; principal; 2019-03-09 10:00)
PROC: 01NB0ZZ Release Lumbar Nerve, Open Approach (ICD-10-PCS; principal; 2019-03-09 10:00)
PROC: 0ST40ZZ Resection of Lumbosacral Disc, Open Approach (ICD-10-PCS; principal; 2019-03-09 10:00)
DX: M51.16 Intervertebral disc disorders with radiculopathy, lumbar region (principal); M51.17 Intervertebral disc disorders with radiculopathy, lumbosacral region; M48.061 Spinal stenosis, lumbar region without neurogenic claudication; I48.91 Unspecified atrial fibrillation; Z79.01 Long term (current) use of anticoagulants; I10 Essential (primary) hypertension; E78.00 Pure hypercholesterolemia, unspecified; E03.9 Hypothyroidism, unspecified; E11.9 Type 2 diabetes mellitus without complications; Z95.0 Presence of cardiac pacemaker; Z79.84 Long term (current) use of oral hypoglycemic drugs; V89.2XXS Person injured in unspecified motor-vehicle accident, traffic, sequela
CPT/HCPCS: 36415; 72020; 76000; 82962; 86850; 86900; 86901; 87081; 94003; 94150; J2405; J2710